=== PATIENT | male | born 1925 | race Caucasian/White ===

== ENCOUNTER 2016-07-28 15:54 | Inpatient (IN) | payer OTHER, MEDICARE ==
[~2016-07-28] VITALS: Ht 172.7 cm; Wt 90.0 kg
[~2016-07-28 15:54] MED LIST: ACET325T96 PO; ASPCH81X PO; ATV5 PO; SERT25TA PO; TRAM-10 PO
[2016-07-28 17:14] LABS: BASO % 0.6 %; BASO ABS # 0.04 K/uL (0-0.2); EOS % 1.9 %; HEMATOCRIT 28.4 % (42-52); IG% 0.3 %; LYMPH % 15.6 %; MEAN CELL VOLUME 87.7 fL (80-100); MEAN CORPUSCULAR HEMOGLOBIN 27.2 pg (25-34); MEAN PLATELET VOLUME 9.7 fL (7.4-10.4); MONO % 12.8 %; NEUT % 68.8 %; PLATELET COUNT 282 K/uL (130-400); RED BLOOD COUNT 3.24 M/uL (4.7-6.1); WHITE BLOOD COUNT 6.39 K/uL (4.8-10.8)
[2016-07-28] MEDS ORDERED: PRT/20 PO (17:34)
[2016-07-28] MEDS ORDERED: ASCO1CAP3 PO (17:34)
[2016-07-28] MEDS ORDERED: FERR1TAB13 PO (17:34)
[2016-07-28 17:35] LABS: COMPLETE YES; POLYCHROMASIA 1+
[2016-07-28 17:36] LABS: ALKALINE PHOSPHATASE 88 U/L (45-117); ALT/SGPT 28 U/L (12-78); AST/SGOT 20 U/L (15-37); BLOOD UREA NITROGEN 16 mg/dl (7-18); BUN/CREATININE RATIO 11.4 (10-20); CALCIUM 8.3 mg/dl (8.5-10.1); CARBON DIOXIDE 24 mmol/L (21-32); CHLORIDE 107 mmol/L (98-107); GLUCOSE 130 mg/dl (70-99); SODIUM 141 mmol/L (136-145)
[2016-07-28] MEDS ORDERED: LORAZEPAM 2 MG/ML 1 ML VIAL IV STA (19:05)
[2016-07-28] MEDS ORDERED: LORAZEPAM 2 MG/ML 1 ML VIAL ONE (19:07)
[2016-07-28] MEDS ORDERED: LORAZEPAM 2 MG/ML 1 ML VIAL IV PRN (19:15)
[2016-07-28] MEDS ORDERED: HALOPERIDOL LACTATE 5 MG/ML 1 ML VIAL IM PRN (20:45)
[2016-07-28] MEDS ORDERED: TRAMADOL HCL 50 MG TAB PO PRN (20:45)
[2016-07-28] MEDS ORDERED: ACETAMINOPHEN 325 MG TAB PO PRN (20:45)
[2016-07-28] MEDS ORDERED: HALOPERIDOL 1 MG TAB PO PRN (20:45)
[2016-07-28] MEDS ORDERED: ONDANSETRON INJ 2 MG/ML 2 ML VIAL IV PRN (20:45)
[2016-07-28] MEDS ORDERED: SERTRALINE HCL 50 MG TAB PO SCH (21:00)
[2016-07-28] MEDS: FERROUS SULFATE 325 MG TAB PO SCH (21:00)
[2016-07-28] MEDS ORDERED: HALOPERIDOL LACTATE 5 MG/ML 1 ML VIAL IM ONE (21:56)
[2016-07-28] MEDS ORDERED: PANTOprazole INJ 80 MG in SYRINGE 0 ML IV STA (21:59)
[2016-07-28] MEDS ORDERED: CALCIUM GLUCONATE 10% 1,000 MG in SODIUM CHLORIDE 0.9% 50ML 50 ML IV STA (22:17)
[2016-07-28 22:25] VITALS: BP 132/79; PULSE 114; TEMP 36.8; O2SAT 97
--- NOTE | 2016-07-28 23:19 | EMERGENCY ROOM VISIT NOTE ---
History Report prepared by Saraibperico: Elena Taylor Under the Supervision of: Dr. Orville Ibarra M.D. First contact with patient: 16:13 Chief Complaint: ABNORMAL LABS Stated Complaint: ILLNESS History of Present Illness The patient is a 89 year old male who presents to the Emergency Room with complaints of abnormal lab results. He was found to anemic on inpatient lab testing, but refused any treatment. The patient has a history of dementia and was agitated and uncooperative at the time of triage. He was brought to the ED via ALS from [facility] with a court order for treatment via the Office of Aging, and signed by Menagerie Caretaker Niranjan. He reports "a lady" came in his room at [facility] earlier today and brought 4 people in to take him out of his bed and bring him here, to the ED, for treatment of the anemia, which greatly upset him. The patient was discharged from the hospital here at [facility] on July 14 after experiencing a GI bleed. He denies any recent vomiting, diarrhea, melena or hematochezia. He reports his appetite has been "good" recently. The patient also denies any LOC, headache, fevers, chills, diaphoresis , visual changes, neck pain, chest pain, breathing difficulties, nausea, abdominal pain, back pain, urinary symptoms, numbness, weakness, lymphadenopathy , rash, or other complaints. Source of History: patient Onset: S[employer]IOR [employer]IST Position: other (global) Timing: constant (global) Review of Systems See HPI for pertinent positives and negatives. A total of ten systems were reviewed and were otherwise negative. Past Medical & Surgical Medical Problems: (1) Anxiety (2) CKD (chronic kidney disease) stage 3, GFR 30-59 ml/min (3) Dementia (4) HTN (hypertension) (5) Hyperlipidemia (6) Symptomatic anemia Surgical Problems: (1) History of appendectomy (2) History of cholecystectomy Social History Smoking Status: Never Smoker Alcohol Use: none Drug Use: none Marital Status: Housing Status: lives alone Occupation Status: retired Current/Historical Medications Scheduled Ascorbic Acid (Vitamin C), 500 MG PO BID Aspirin (Aspirin Chewable), 81 MG PO DAILY Ferrous Sulfate (Kp Ferrous Sulfate), 1 TAB PO BID Pantoprazole (Protonix), 20 MG PO DAILY Sertraline (Zoloft), 12.5 MG PO HS Scheduled PRN Tramadol (Ultram), 50 MG PO Q8H PRN for Pain Allergies Coded Allergies: No Known Allergies (Verified , ., 07/28/16) Physical Exam Vital Signs Date Time Temp Pulse Resp B/P Pulse Ox O2 Delivery O2 Flow Rate FiO2 07/28/16 18:10 78 24 140/75 96 Room Air 07/28/16 16:27 79 07/28/16 16:13 99 Room Air 07/28/16 16:10 36.8 86 18 155/78 99 Room Air Physical Exam GENERAL: Awake, alert, well-appearing, in no acute distress HENT: Normocephalic, atraumatic. Oropharynx unremarkable. EYES: Normal conjunctiva. Sclera non-icteric. NECK: Supple. No nuchal rigidity. FROM. No JVD. RESPIRATORY: Clear to auscultation. CARDIAC: Regular rate, normal rhythm. Extremities warm and well perfused. Pulses equal. ABDOMEN: Soft, non-distended. No tenderness to palpation. No rebound or guarding. No masses. RECTAL: Deferred. MUSCULOSKELETAL: Chest examination reveals no tenderness. The back is symmetrical on inspection without obvious abnormality. There is no CVA tenderness to palpation. No joint edema. LOWER EXTREMITIES: Calves are equal size bilaterally and non-tender. Trace lower extremity edema. No discoloration. NEURO: Normal sensorium. No sensory or motor deficits noted. SKIN: No rash or jaundice noted. Medical Decision & Procedures Laboratory Results 07/28/16 17:01 Red Blood Count 3.24, Mean Corpuscular Volume 87.7, Mean Corpuscular Hemoglobin 27.2, Mean Corpuscular Hemoglobin Concent 31.0, Mean Platelet Volume 9.7, Neutrophils (%) (Auto) 68.8, Lymphocytes (%) (Auto) 15.6, Monocytes (%) (Auto) 12.8, Eosinophils (%) (Auto) 1.9, Basophils (%) (Auto) 0.6, Neutrophils # (Auto ) 4.39, Lymphocytes # (Auto) 1.00, Monocytes # (Auto) 0.82, Eosinophils # (Auto ) 0.12, Basophils # (Auto) 0.04 07/28/16 16:28 Test 07/28/16 16:28 07/28/16 17:01 Anion Gap 10.0 mmol/L (3-11) Est Creatinine Clear Calc Drug Dose 39.4 ml/min Estimated GFR () 51.3 Estimated GFR (Non- 44.2 BUN/Creatinine Ratio 11.4 (10-20) Calcium Level 8.3 mg/dl (8.5-10.1) Total Bilirubin 0.2 mg/dl (0.2-1) Direct Bilirubin mg/dl (0-0.2) Aspartate Amino Transf (AST/SGOT) 20 U/L (15-37) Alanine Aminotransferase (ALT/SGPT) 28 U/L (12-78) Alkaline Phosphatase 88 U/L (45-117) Total Protein 6.6 gm/dl (6.4-8.2) Albumin 3.5 gm/dl (3.4-5.0) Lipase 157 U/L (73-393) Chemistry Specimen Hemolysis White Blood Count 6.39 K/uL (4.8-10.8) Red Blood Count 3.24 M/uL (4.7-6.1) Hemoglobin 8.8 g/dL (14.0-18.0) Hematocrit 28.4 % (42-52) Mean Corpuscular Volume 87.7 fL (80-100) Mean Corpuscular Hemoglobin 27.2 pg (25-34) Mean Corpuscular Hemoglobin Concent 31.0 g/dl (32-36) Platelet Count 282 K/uL (130-400) Mean Platelet Volume 9.7 fL (7.4-10.4) Neutrophils (%) (Auto) 68.8 % Lymphocytes (%) (Auto) 15.6 % Monocytes (%) (Auto) 12.8 % Eosinophils (%) (Auto) 1.9 % Basophils (%) (Auto) 0.6 % Neutrophils # (Auto) 4.39 K/uL (1.4-6.5) Lymphocytes # (Auto) 1.00 K/uL (1.2-3.4) Monocytes # (Auto) 0.82 K/uL (0.11-0.59) Eosinophils # (Auto) 0.12 K/uL (0-0.5) Basophils # (Auto) 0.04 K/uL (0-0.2) RDW Standard Deviation 51.7 fL (36.4-46.3) RDW Coefficient of Variation 16.0 % (11.5-14.5) Immature Granulocyte % (Auto) 0.3 % Immature Granulocyte # (Auto) 0.02 K/uL (0.00-0.02) Polychromasia 1+ Laboratory results reviewed by me Medications Administered Medications (Trade) Dose Ordered Sig/Satinder Route Start Time Stop Time Status Last Admin Dose Admin Lorazepam (Ativan Inj) 0.5 mg NOW STAT IV 07/28/16 19:05 07/28/16 19:07 DC 07/28/16 19:05 0.5 MG Lorazepam (Ativan Inj) 0.5 mg Q5M PRN IV 07/28/16 19:15 07/28/16 20:41 DC 07/28/16 19:12 0.5 MG ED Course 164: The patient was evaluated in room C7. A complete history and physical exam was performed. 1839: I reassessed the patient. He got agitated and tried to get up out of bed and leave the ED. Security was called and I have ordered Ativan for him. 1899: I discussed the patients case with Marivel Tristan PA-C, [facility]. The patient will be further evaluated. 1904: Ativan 0.5 mg IV. 1914: Ativan 0.5 mg IV. Medical Decision Triage Nursing notes reviewed. The patient's presentation and history were concerning for anemia, noncompliance with recommended treatment and history of dementia. Etiologies such as diverticulosis, AVM, coagulopathy, colitis, inflammatory bowel disease, malignancy,Evelyne-Maxwell tear, esophagitis, peptic ulcer disease , variceal bleed, gastritis, epistaxis, fissure, hemorrhoids, as well as others were entertained. Records were reviewed. The patient was in the hospital for a GI bleed. He was Hemoccult positive at that time. He did not consent for colonoscopy. The patient was here on a court mandated order for treatment due to his dementia. The patient was on the phone with his daughter when I entered the room and she was asking him to cooperate with the treatment. The patient agreed reluctantly and blood work was obtained. The patient was significantly anemic with a hemoglobin of 8.8. [facility] who felt further treatment in the hospital was warranted. Prior to evaluation by the hospital service the patient became agitated and wanted to leave. Security had to prevent him from leaving and escort him to his room. The patient was given 0.5 mg of IV Ativan and was much more comfortable and relaxed with this. Patient was evaluated by the hospitalist service and admitted for further evaluation of his anemia and probable GI bleed. The chart was completed utilizing [employer] Speech voice recognition software. Grammatical errors, random word insertions, pronoun errors, and incomplete sentences are an occasional consequence of this system due to software limitations, ambient noise, and hardware issues. Any formal questions or concerns about the content, text, or information contained within the body of this dictation should be directly addressed to the physician for clarification. Consults Time Called: 1854 Consulting Physician: Marivel Tristan PA-C, [facility]ist Returned Call: 0 I discussed the patients case with Marivel Tristan PA-C, [facility]. The patient will be further evaluated. Impression Primary Impression: Anemia Additional Impressions: GI bleed, Dementia Scribe Attestation The scribe's documentation has been prepared under my direction and personally reviewed by me in its entirety. I confirm that the note above accurately reflects all work, treatment, procedures, and medical decision making performed by me. Departure Information Dispostion Being Evaluated By Hospitalist Referrals No Doctor, Assigned (PCP) Patient Instructions A Signature Page, My [facility]
[2016-07-28 23:30] VITALS: BP 132/79; PULSE 107; TEMP 36.8; O2SAT 97; Ht 172.7 cm; Wt 90.0 kg
[2016-07-29] VITALS: O2SAT 97
--- NOTE | 2016-07-29 02:58 | HISTORY & PHYSICAL EXAMINATION ---
DATE OF ADMISSION: 07/28/2016 PRIMARY CARE DOCTOR: Lynne Burch MD The patient is a [facility] resident. History was obtained from patient, records and patient's daughter. Limited history from px secondary to dementia. CHIEF COMPLAINT: Anemia as per records "I don't know why I'm in the hospital," as per px. HISTORY OF PRESENT ILLNESS: Medical history is significant for dementia, CAD sp CABG/stenting, hypertension , hyperlipidemia, anxiety as per records, chronic anemia (baseline hemoglobin of 9-10). Recent confinement about 3 weeks ago for symptomatic anemia. Hg 10. EGD showed Paul erosions. Colonoscopy was not done secondary to miscommunication. As per GI note, colonoscopy when patient is agreeable. Patient and daughter opted to go home. Patient started on Prilosec as outpatient. ASA decreased in dose. Last week, patient's daughter from [place] visited the patient. He looked ashen as per daughter. He looked short of breath on exertion. She requested for a blood work to be drawn.. Outpx hemoglobin was noted to be 8.1. PCP recommended ER eval, patient refused. Patient's daughter had to get a court order to bring the patient to the hospital. At the Emergency Room, the patient agitated and combative. Given Ativan. PX denies chest pain, shortness of breath, abdominal pain, black or bloody stools. He does not know why he is in the hospital. MEDICAL HISTORY: As above. SURGERIES: Cholecystectomy. HOME MEDICATIONS: Include; Tylenol, aspirin, ferrous sulfate, Protonix, Ultram and vitamin C. ALLERGIES: No known drug allergies. FAMILY HISTORY: Cannot be obtained. PERSONAL AND SOCIAL HISTORY: Cannot be obtained. [facility] resident. REVIEW OF SYSTEMS: Cannot be obtained. PHYSICAL EXAMINATION: VITAL SIGNS: Blood pressure was noted to be 123/72, pulse rate 80, RR 20, temperature 36.8 and sats 90 on room air. GENERAL: Noted to be demented, obese, in no respiratory distress. SKIN: pallor. HEENT: Pale palpebral conjunctivae. Dry mucosa. NECK: Short neck. LUNGS: Decreased breath sounds. HEART: Regular rate and rhythm. ABDOMEN: Some distention, nontender. EXTREMITIES: Minimal LE edema, no tenderness. NEUROLOGIC: Demented. LABORATORIES: Hemoglobin was 8.8, hematocrit 28, white cell count 6.3, platelets 282. Sodium 140 potassium 4, chloride 102, CO2 24, BUN 6, creatinine 1.1 and glucose was noted to be 132. ASSESSMENT: 1. acute on chronic anemia symptomatic as per daughter's account hemoglobin drop 2 to slow gastrointestinal bleed history of Paul erosions on recent EGD. Colonoscopy deferred during recent confinement 2 to miscommunication. 2. Hypertension, stable. 3. Coronary artery disease status post coronary artery bypass graft/stenting 4. Dementia. episodic agitation at the ER PLAN: GMF. Follow HH, transfuse hemoglobin if less than 8 and/or for symptomatic anemia. Hold aspirin for now Continue PPI BID GI consult RE GI bleed. (for colonoscopy; would also query GI about need for/ duration of home ASA hold w/ hx Paul erosions on EGD if colonoscopy unremarkable) Haldol prn agitation DVT prophylaxis, SCDs. RE GI bleed Level 3 Code status as per daughter, MAXIM Roblero. (Px was okay with CPR. No intubation) She requests updates from providers thru her mobile number . [facility]
[2016-07-29 06:58] VITALS: BP 137/74; PULSE 80; TEMP 36.6; O2SAT 99
[2016-07-29] MEDS: PANTOprazole SOD 40 MG TAB PO SCH ×2 (08:36→21:45)
[2016-07-29] MEDS: FERROUS SULFATE 325 MG TAB PO SCH ×2 (08:36→21:45)
--- NOTE | 2016-07-29 11:27 | Progress Note ---
Medicine Progress Note Date & Time of Visit: Jul 29, 2016 at 10:38. Subjective 89 yo M with dementia and behavioral disturbance who was brought to the hospital under court order by his daughter and police for evaluation of his anemia. Per notes, the daughter was concerned 4-5 days ago regarding her father 's pale appearance, and he was taken for bloodwork that revealed a drop in H/H from recent hospital discharge earlier this month. At that time he was evaluated for GIB, however, only upper endoscopy was able to be done and revealed Paul lesions likely 2/2 aspirin use per GI attending. Colonoscopy and c-scope prep was refused by the patient and he was discharged with an incomplete workup 2/2 refusal by both patient and daughter to proceed further. At that time he received 2 Units of blood with good response. At discharge his H/H was 10/33 on 07/09 and is now 8.8/23 on admission yesterday (07/28). Today he denies any bleeding at home and is not sure if he is compliant with aspirin at home. He has a h/o CAD s/p stent and was a Plavix non-responder. Full dose ASA was reduced to 81mg daily at prior discharge as Paul's erosions were not that significant on EGD. Objective Last 8 Hrs Date Time Temp Pulse Resp B/P Pulse Ox O2 Delivery O2 Flow Rate FiO2 07/29/16 09:00 Room Air 07/29/16 06:58 36.6 80 20 137/74 99 Room Air Physical Exam: GEN: WNWD, in no acute distress, alert and oriented to self and date, eyes are closed and lying down while talking with me, occasionally opens HEENT: NC/AT, normal sclerae CARDIO: reg rate, S1/2 heard without m/g/r LUNGS: CTA bilaterally, no crackles, rales or wheezes, good diaphragmatic excursion ABD: soft, non-tender, non-distended, no rebound or guarding, BS EXTREMITY: RP and DP palpable 2+ bilat, no LE swelling or edema, extremities are warm and well-perfused NEURO: limited exam 2/2 patient cooperation/potential for agitation-no gross focal deficits. MUSC: limited exam 2/2 patient cooperation/potential for agitation-no gross focal deficits. SKIN: warm and dry Laboratory Results: Last 24 Hours Test 07/28/16 16:28 07/28/16 17:01 Sodium Level 141 mmol/L Potassium Level 4.0 mmol/L Chloride Level 107 mmol/L Carbon Dioxide Level 24 mmol/L Anion Gap 10.0 mmol/L Blood Urea Nitrogen 16 mg/dl Creatinine 1.40 mg/dl Est Creatinine Clear Calc Drug Dose 39.4 ml/min Estimated GFR () 51.3 Estimated GFR (Non- 44.2 BUN/Creatinine Ratio 11.4 Random Glucose 130 mg/dl Calcium Level 8.3 mg/dl Total Bilirubin 0.2 mg/dl Direct Bilirubin mg/dl Aspartate Amino Transf (AST/SGOT) 20 U/L Alanine Aminotransferase (ALT/SGPT) 28 U/L Alkaline Phosphatase 88 U/L Total Protein 6.6 gm/dl Albumin 3.5 gm/dl Lipase 157 U/L Chemistry Specimen Hemolysis White Blood Count 6.39 K/uL Red Blood Count 3.24 M/uL Hemoglobin 8.8 g/dL Hematocrit 28.4 % Mean Corpuscular Volume 87.7 fL Mean Corpuscular Hemoglobin 27.2 pg Mean Corpuscular Hemoglobin Concent 31.0 g/dl Platelet Count 282 K/uL Mean Platelet Volume 9.7 fL Neutrophils (%) (Auto) 68.8 % Lymphocytes (%) (Auto) 15.6 % Monocytes (%) (Auto) 12.8 % Eosinophils (%) (Auto) 1.9 % Basophils (%) (Auto) 0.6 % Neutrophils # (Auto) 4.39 K/uL Lymphocytes # (Auto) 1.00 K/uL Monocytes # (Auto) 0.82 K/uL Eosinophils # (Auto) 0.12 K/uL Basophils # (Auto) 0.04 K/uL RDW Standard Deviation 51.7 fL RDW Coefficient of Variation 16.0 % Immature Granulocyte % (Auto) 0.3 % Immature Granulocyte # (Auto) 0.02 K/uL Polychromasia 1+ Assessment & Plan 1. Anemia-2/2 poss occult GIB -Symptomatic?--lightheadedness and decreased exercise tolerance per daughter. Pt does not appear winded to her and denies chest pain. All ROS are negative per patient today. Per GI team, elective cscope cannot be completed until . Spoke with daughter, who is in the process of obtaining guardianship through the Office of Aging, and she is fine with this plan. Will plan to start prep early Sunday, putting Miralax in juice as attempted before vs mag citrate? apprec GI recs for this. Will trend H/H as patient allows. Currently he is hemodynamically stable so this is not imperative daily. Cont Protonix and iron supplementation and will defer to GI regarding ASA, but will hold for now. 2. h/o CAD-in setting of decreased exercise tolerance will get TTE as there is not one on file. h/o PCI placement, on admission EKG was SR 81, 1AVB and no evidence of ischemia. Troponin was negative. Will also obtain 25OH vit D for this and dementia 3. Dementia with agitation-restrained with Haldol this morning, on 1:1 and requested Psych consult. Metabolic contributers to delirium/dementia have been evaluated recently including vitamin B12/folate, iron, TSH. Certainly anemia may be contributing directly and indirectly causing frustration with less independence as his exercise tolerance is decreased per daughter. Will also check vitamin D. Appreciate consideration of low dose seroquel? to help control agitation or other consistent medication for this instead of PRN which is not reliably given. He did start very low dose Sertraline earlier this month. Will work to reorient/keep good day/night cycles in lieu of chemical restraint unless needed. Avoid Ativan at this time to prevent delirium/ owning/worsening of aggression--this happened last night and ultimately Haldol was required. Nutrition-clear liquid diet for now. DVT proph-SCDs in setting of poss GIB Full code-no mech intubation (LVL 3) Dispo-prep or scope on DO [facility] Hospitalist Consultants: GI/Psych Current Inpatient Medications: Current Inpatient Medications Medications (Trade) Dose Ordered Sig/Satinder Route Start Time Stop Time Status Last Admin Dose Admin Acetaminophen (Tylenol Tab) 650 mg Q4H PRN PO 07/28/16 20:45 08/27/16 20:44 Haloperidol Lactate (Haldol Inj) 2 mg Q2H PRN IM 07/28/16 20:45 07/29/16 08:35 2 MG Haloperidol (Haldol Tab) 2 mg Q4H PRN PO 07/28/16 20:45 08/27/16 20:44 Ondansetron HCl (Zofran Inj) 4 mg Q6H PRN IV 07/28/16 20:45 08/27/16 20:44 Tramadol HCl (Ultram Tab) 25 mg Q6H PRN PO 07/28/16 20:45 08/27/16 20:44 Sertraline HCl (Zoloft Tab) 12.5 mg HS PO 07/28/16 21:00 08/27/16 20:59 Ferrous Sulfate (Feosol Tab) 325 mg BID PO 07/28/16 21:00 08/27/16 20:59 Pantoprazole Sodium (Protonix Tab) 40 mg BID PO 07/29/16 09:00 08/28/16 08:59
--- NOTE | 2016-07-29 12:54 | Gastrointestinal Consultation ---
Gastrointestinal Consultation Date of Consultation: Jul 29, 2016 History of Present Illness Patient is a 89 year old male whom I saw on an earlier admission for similar complaints. Mr. Roblero is an 89 yo gentleman with dementia who has had recurrent dyspnea on exertion with subsequent identification of anemia without signs of bleeding. On last admission within a month, EGD revealed mild but present Paul's erosions in a hernia sac. Discussions with daughter and patient in regards to colonoscopy were undertaken and several attempts (multiple days worth) of attempts at a prep for a colonoscopy were attempted, however, it appears he would not agree to drink the preparation. He apparently was discharged home ( [facility]). Re-admitted with dyspnea, repeat outpatient hemoglobin was mildly declined, admission was recommended, but even with daughter POA had to require hospitilization via court order. He can not provide any history, was very combative this morn requiring haldol. Nursing staff denies any evidence of gi bleeding. No melena, hematemesis, or hematochezia. VSS and patient is resting comfortably. Past Medical/Surgical History Medical Problems: (1) Anemia Status: Acute (2) Dementia Status: Chronic (3) GI bleed Status: Acute Social History Smoking Status: Never Smoker Alcohol Use: none Drug Use: none Marital Status: Housing Status: lives alone Occupation Status: retired Allergies Coded Allergies: No Known Allergies (Verified , ., 07/28/16) Current Medications Home Meds and Scripts Medications Dose Route/Sig Max Daily Dose Days Date Category Vitamin C (Ascorbic Acid) 500 Mg Cap 500 Mg PO BID 07/28/16 Reported Protonix (Pantoprazole Sodium) 20 Mg Tab 20 Mg PO DAILY 07/28/16 Reported Kp Ferrous Sulfate (Ferrous Sulfate) 325 Mg Tab 1 Tab PO BID 30 07/28/16 Reported Zoloft (Sertraline HCl) 25 Mg Tab 12.5 Mg PO HS 30 07/10/16 Rx Ultram (Tramadol HCl) 50 Mg Tab 50 Mg PO Q8H PRN 07/04/16 Reported Aspirin Chewable (Aspirin) 81 Mg Chew 81 Mg PO DAILY 07/04/16 Reported Review of Systems Not reliably able to be obtained given patients chronic dementia. Physical Exam Date Time Temp Pulse Resp B/P Pulse Ox O2 Delivery O2 Flow Rate FiO2 07/29/16 09:00 Room Air 07/29/16 06:58 36.6 80 20 137/74 99 Room Air 07/29/16 00:00 97 Room Air 07/28/16 23:30 36.8 107 19 132/79 97 Room Air 07/28/16 22:25 36.8 114 19 132/79 97 Room Air 07/28/16 20:10 80 20 123/72 93 Room Air 07/28/16 18:10 78 24 140/75 96 Room Air 07/28/16 16:27 79 07/28/16 16:13 99 Room Air 07/28/16 16:10 36.8 86 18 155/78 99 Room Air General Appearance: WD/WN, + pertinent finding (sleeping in bed) RRR No mgr diminshed bs in bases nabs/soft/nd/nd awakes and tells me his name no neurological defecits noticed no apparent distress. Laboratory Results Last 24 Hours Test 07/28/16 16:28 07/28/16 17:01 07/29/16 11:14 Sodium Level 141 mmol/L Potassium Level 4.0 mmol/L Chloride Level 107 mmol/L Carbon Dioxide Level 24 mmol/L Anion Gap 10.0 mmol/L Blood Urea Nitrogen 16 mg/dl Creatinine 1.40 mg/dl Est Creatinine Clear Calc Drug Dose 39.4 ml/min Estimated GFR () 51.3 Estimated GFR (Non- 44.2 BUN/Creatinine Ratio 11.4 Random Glucose 130 mg/dl Calcium Level 8.3 mg/dl Total Bilirubin 0.2 mg/dl Direct Bilirubin mg/dl Aspartate Amino Transf (AST/SGOT) 20 U/L Alanine Aminotransferase (ALT/SGPT) 28 U/L Alkaline Phosphatase 88 U/L Total Protein 6.6 gm/dl Albumin 3.5 gm/dl Lipase 157 U/L Chemistry Specimen Hemolysis White Blood Count 6.39 K/uL Red Blood Count 3.24 M/uL Hemoglobin 8.8 g/dL Hematocrit 28.4 % Mean Corpuscular Volume 87.7 fL Mean Corpuscular Hemoglobin 27.2 pg Mean Corpuscular Hemoglobin Concent 31.0 g/dl Platelet Count 282 K/uL Mean Platelet Volume 9.7 fL Neutrophils (%) (Auto) 68.8 % Lymphocytes (%) (Auto) 15.6 % Monocytes (%) (Auto) 12.8 % Eosinophils (%) (Auto) 1.9 % Basophils (%) (Auto) 0.6 % Neutrophils # (Auto) 4.39 K/uL Lymphocytes # (Auto) 1.00 K/uL Monocytes # (Auto) 0.82 K/uL Eosinophils # (Auto) 0.12 K/uL Basophils # (Auto) 0.04 K/uL RDW Standard Deviation 51.7 fL RDW Coefficient of Variation 16.0 % Immature Granulocyte % (Auto) 0.3 % Immature Granulocyte # (Auto) 0.02 K/uL Polychromasia 1+ Impression Patient is a 89 year old male with complaints of dyspnea and anemia I am unsure if his dyspnea is caused from anemia. Pulmonary issues and CV issues should also be discussed and explored with CXR etc. He at this time does not have any evidence of gi bleeding, overt or occult. He does have Paul's lesions and should remain on PPI to help avoid continued ulcerations. Normally colonoscopy would be pursued, however, a good quality prep would be essential to rule out lesions including AVM's to be explored and to be performed safely. If patient is willing to prep, would pursue with colonoscopy and consideration for repeat EGD to ensure no worsening ulcerations. Please let know patient and family wishes and will place on schedule for this week.
[2016-07-29] MEDS ORDERED: QUETIAPINE FUMARATE 25 MG TAB PO PRN (14:15)
--- NOTE | 2016-07-29 14:27 | Psychiatric Consultation ---
Consultation Identifying Data Mr Roblero is an 89yo male with a history of multiple medical problems to include alzheimer's dementia (per record) and presently admitted by court order for treatment of his anemia. Psychiatry was consulted as patient lacks capacity and continues to request to go home, refusing medical tests, labs and procedures and becoming agitated resulting in Code Pimentel AM 07/29/16 prompting IM haldol after failure of verbal redirection and patient refusal for oral meds. Consultation question is for medication management options for agitation. Chief Complaint "I'm fine, I want to go home". History of Present Illness The patient is laying in his bed this afternoon, with eyes closed. He interacts to verbal prompting but only rarely opens his eyes. He states he is fine and wants to go home. He asks if this provider will let him go home. When he is told he has anemia and needs to remain to work on identifying the cause and to help to improve his blood counts/anemia he again perseverates on " I feel fine, I want to go home." He is oriented to person, but no other of the 9 orientation questions on MMSE. He is able to pick from choices e.g. "I guess this is a hospital" but has no recollection that it is New Year's Amy. With prompting he can deduce that "it must be June" but not that it is the "" He shows no appreciation of his medical condition nor the r/b/se/a of leaving treatment nor staying for treatment. He is verbally irritable with this provider but redirectable. When provider asks about medications and blood draws, and the ultrasound/echo he states he will not do it, "I want to go home." When provider encourages him that if Dr Dial can monitor his bloodwork to help towards identifying a casue and solution so that he can go home he states "I guess I will do it then." Reveiw of his chart shows that he has no formal psychiatric history but is known to our consultation service from a prior admission 07/04/16. He was started on zoloft 12.5mg/hs at that time to assist with agitation/irritability, and provided ativan 0.5mg prior to procedures. He had haldol in the ER prior to that admission but no other antipsychotic medications. It is not clear if he has routinely been taking his sertraline at his fdc or refusing. When asked he denies having GORDON, stomach upset or loose bowels. During this admission he refused his sertraline 12.5mg last night. He has been refusing all his po medications. He had IM haldol as noted above in introduction on AM of 07/29/16 due to agitation, failure of verbal redirection and refusal for Po medications. Past Psychiatric History Current OP Treatment: no current treatment Prior OP Treatment: no prior treatment (1) Dementia Past Medical/Surgical History History of Obesity: Yes History of HTN: Yes History of Diabetes: Yes History of Heart Disease: Yes History of Dyslipidemia: Yes History of Concussion/Seizure: No Problem List: (1) Symptomatic anemia (2) CKD (chronic kidney disease) stage 3, GFR 30-59 ml/min Allergies Allergies: Coded Allergies: No Known Allergies (Verified , ., 07/28/16) Home Medications Scheduled Ascorbic Acid (Vitamin C), 500 MG PO BID Aspirin (Aspirin Chewable), 81 MG PO DAILY Ferrous Sulfate (Kp Ferrous Sulfate), 1 TAB PO BID Pantoprazole (Protonix), 20 MG PO DAILY Sertraline (Zoloft), 12.5 MG PO HS Scheduled PRN Tramadol (Ultram), 50 MG PO Q8H PRN for Pain Family History Patient 07/29/16 denies family history of mental illness or suicide or substance use (he previously denied this 07/04/16 history as well) Alcohol Use Alcohol Use In Past 12 Months: No Personal History Born in: raised in [place] Education: other (bachelors from [employer], Masters in Engineering from [place]) Work History: biomedical engineering technologist, 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 At one time he owned a pet elephant while living in [place]. Review of Systems Patient denies symptoms on 10 system ROS (however given his cognitive impairment it is unclear if he is reliable) Examination Vital Signs Vital Signs Past 12 Hours Date Time Temp Pulse Resp B/P Pulse Ox O2 Delivery O2 Flow Rate FiO2 07/29/16 09:00 Room Air 07/29/16 06:58 36.6 80 20 137/74 99 Room Air Laboratory Results Last 24 Hours Test 07/28/16 16:28 07/28/16 17:01 07/29/16 11:14 Sodium Level 141 mmol/L Potassium Level 4.0 mmol/L Chloride Level 107 mmol/L Carbon Dioxide Level 24 mmol/L Anion Gap 10.0 mmol/L Blood Urea Nitrogen 16 mg/dl Creatinine 1.40 mg/dl Est Creatinine Clear Calc Drug Dose 39.4 ml/min Estimated GFR () 51.3 Estimated GFR (Non- 44.2 BUN/Creatinine Ratio 11.4 Random Glucose 130 mg/dl Calcium Level 8.3 mg/dl Total Bilirubin 0.2 mg/dl Direct Bilirubin mg/dl Aspartate Amino Transf (AST/SGOT) 20 U/L Alanine Aminotransferase (ALT/SGPT) 28 U/L Alkaline Phosphatase 88 U/L Total Protein 6.6 gm/dl Albumin 3.5 gm/dl Lipase 157 U/L Chemistry Specimen Hemolysis White Blood Count 6.39 K/uL Red Blood Count 3.24 M/uL Hemoglobin 8.8 g/dL Hematocrit 28.4 % Mean Corpuscular Volume 87.7 fL Mean Corpuscular Hemoglobin 27.2 pg Mean Corpuscular Hemoglobin Concent 31.0 g/dl Platelet Count 282 K/uL Mean Platelet Volume 9.7 fL Neutrophils (%) (Auto) 68.8 % Lymphocytes (%) (Auto) 15.6 % Monocytes (%) (Auto) 12.8 % Eosinophils (%) (Auto) 1.9 % Basophils (%) (Auto) 0.6 % Neutrophils # (Auto) 4.39 K/uL Lymphocytes # (Auto) 1.00 K/uL Monocytes # (Auto) 0.82 K/uL Eosinophils # (Auto) 0.12 K/uL Basophils # (Auto) 0.04 K/uL RDW Standard Deviation 51.7 fL RDW Coefficient of Variation 16.0 % Immature Granulocyte % (Auto) 0.3 % Immature Granulocyte # (Auto) 0.02 K/uL Polychromasia 1+ Mental Examination During interview pt is: other (intermittantly cooperative) Appearance: other (laying in bed in dress button down shirt and pants, dress shoes at ) Eye contact is: fair Motor behavior is: no abnormal motor movements (but was agitated earlier today attempting to leave the hospital) Speech: normal in rate, rhythm & volume Affect: blunted (mildly irritable perseverating on going home, but can be redirected) Mood is: irritable Thought process: tangential (paucity of spontaneous thought, but can share some brief vague stories of his past) Thought content: preoccupation (with going home) Suicidal thought are: denied Homicidal thoughts are: denied Hallucinations: denies auditory Cognition: other (severely impaired, poor recall for current and past, only oriented to person, limited abstraction ability) Intelligence estimated to be: average Insight: poor Judgement: poor Impression / Recommendations Impression Diagnosis Dementia (alzheimer's type by record) symptomatic anemia CAD HLP CKD HTN Upper GI erosions Inventory Assets Strengths: inpatient medical care (court ordered) Actively involved POA and daughter Needs: full care support consistent redirection Risk Factors Assessment Male: Yes : Yes /single/: Yes Health problems: Yes Protective Factors Assessment Supportive family: Yes Recommendations (1) Dementia 1. Agree with avoidance of ativan if at all possible 2. Continue sertraline will increase to 25mg at this time (to target agitation/ irritability) crush and mix in food. Per dtr he likes OJ, coffee and grapefruit. 3. Agree with bedside attendant to reduce fall risk and assist with stimulation and orientation 4. Please engage the behavioral efforts for delirium/dementia ([facility] liaison nurse to provide hand out to the primary team) e.g. lights on in day, lights off at night, OOB to chair in day, glasses on, orient at each interaction, etc. 5. Patient's dtr and POA is coming to [place] and may be useful in providing some re-orientation and facilitate father's compliance, will have to observe and see. In meantime, patient would benefit from approach through conversation and then asking for procedure pointing out how engaging in the work up or test will help him towards his goal of hospital discharge. 6. For acute agitation trial 25mg seroquel (quetiapine) q8h prn agitation, hold for sedation, may crush in food If he refuses po, then may give IM haldol 2mg hold for sedation q2h as written by primary team, however if 2 successive doses are unsuccessful, please call behavioral health nurse liaison. Watch for Extrapyramidal symptoms or dystonia with repeated IM dosing. Will not schedule daily antipsychotic at this time, but if he continues to get agitated and requiring prn dosing of medications then would consider daily hs dosing of seroquel for a short period during this hospital stay. thank you for this consultation, we will be following. Call for more acute questions or concerns. Code [id number]
[2016-07-29 14:45] LABS: BASO % 0.8 %; BASO ABS # 0.04 K/uL (0-0.2); EOS % 1.6 %; HEMATOCRIT 28.4 % (42-52); IG% 0.4 %; LYMPH ABS # 0.88 K/uL (1.2-3.4); MEAN CELL VOLUME 86.9 fL (80-100); MEAN CORPUSCULAR HEMOGLOBIN 26.6 pg (25-34); MEAN CORPUSCULAR HGB CONC 30.6 g/dl (32-36); MONO % 15.6 %; NEUT % 63.6 %; PLATELET COUNT 251 K/uL (130-400); RED BLOOD COUNT 3.27 M/uL (4.7-6.1); WHITE BLOOD COUNT 4.88 K/uL (4.8-10.8)
[2016-07-29 15:08] LABS: BUN/CREATININE RATIO 11.6 (10-20); CALCIUM 8.4 mg/dl (8.5-10.1); CREATININE 1.1 mg/dl (0.60-1.40); POTASSIUM 3.6 mmol/L (3.5-5.1)
[2016-07-29 15:34] LABS: COMPLETE YES; HYPOCHROMIA PRESENT; POLYCHROMASIA 1+; SPHEROCYTE OCCASIONAL
[2016-07-29 15:47] VITALS: BP 133/71; PULSE 72; TEMP 36.4; O2SAT 97
[2016-07-29 16:00] VITALS: O2SAT 97
[2016-07-29] MEDS ORDERED: ERGOCALCIFEROL 50,000 INTER.UNIT CAP PO SCH (21:00)
[2016-07-29] MEDS: SERTRALINE HCL 50 MG TAB PO SCH (21:45)
[2016-07-30 00:42] VITALS: BP 103/69; PULSE 82; TEMP 36.6; O2SAT 94
[2016-07-30 06:44] VITALS: BP 111/67; PULSE 76; TEMP 37.1; O2SAT 94
[2016-07-30] MEDS: PANTOprazole SOD 40 MG TAB PO SCH ×2 (08:56→20:50)
[2016-07-30] MEDS: FERROUS SULFATE 325 MG TAB PO SCH ×2 (08:56→20:50)
[2016-07-30 13:30] LABS: BASO % 0.9 %; BASO ABS # 0.04 K/uL (0-0.2); COMPLETE YES; EOS % 0.9 %; HEMATOCRIT 29.7 % (42-52); IG% 0.7 %; LYMPH % 20.4 %; LYMPH ABS # 0.94 K/uL (1.2-3.4); MEAN CELL VOLUME 86.3 fL (80-100); MEAN CORPUSCULAR HEMOGLOBIN 26.7 pg (25-34); MEAN PLATELET VOLUME 9.5 fL (7.4-10.4); NEUT % 67.1 %; PLATELET COUNT 251 K/uL (130-400); RED BLOOD COUNT 3.44 M/uL (4.7-6.1); WHITE BLOOD COUNT 4.61 K/uL (4.8-10.8)
[2016-07-30 14:12] LABS: MANUAL MICROSCOPIC REQUIRED? NO; REVIEW REQ? NO; URINE APPEARANCE CLEAR (CLEAR); URINE BILIRUBIN NEG (NEG); URINE COLOR YELLOW; URINE NITRITE NEG (NEG); URINE SPECIFIC GRAVITY 1.019 (1.000-1.030); UROBILINOGEN NEG (NEG); ZZUR CULT IF INDIC CLEAN CATCH NO
--- NOTE | 2016-07-30 14:40 | Progress Note ---
Progress Note Saw earlier today, sitting in bed just finished meal. No signs of bleeding Hb is stable (actually higher) and same as last admission If family desires colonoscopy, will perform for anemia-5 days of attempted prep was not successful on last admission. If family and primary team desires colonoscopy prior to d/c please order prep with NPO after MN prior or will arrange as outpatient if family desires. Otherwise would recommend continued observation Would suggest ambulation and PT prior to DC ensure admitting c/o dyspnea is not still present
[2016-07-30 15:46] VITALS: BP 145/79; PULSE 75; TEMP 36.5; O2SAT 93
[2016-07-30 16:15] VITALS: O2SAT 93
[2016-07-30] MEDS: SERTRALINE HCL 50 MG TAB PO SCH (20:50)
--- NOTE | 2016-07-30 22:38 | Progress Note ---
Medicine Progress Note Date & Time of Visit: Jul 30, 2016 at 17:27. Objective Last 8 Hrs Date Time Temp Pulse Resp B/P Pulse Ox O2 Delivery O2 Flow Rate FiO2 07/30/16 15:46 36.5 75 16 145/79 93 Room Air Physical Exam: GEN: WNWD, in no acute distress, alert and oriented to self and date, eyes are closed and lying down while talking with me, occasionally opens HEENT: NC/AT, normal sclerae CARDIO: reg rate, S1/2 heard without m/g/r LUNGS: CTA bilaterally, no crackles, rales or wheezes, good diaphragmatic excursion ABD: soft, non-tender, non-distended, no rebound or guarding, BS EXTREMITY: RP and DP palpable 2+ bilat, no LE swelling or edema, extremities are warm and well-perfused NEURO: limited exam 2/2 patient cooperation/potential for agitation-no gross focal deficits. MUSC: limited exam 2/2 patient cooperation/potential for agitation-no gross focal deficits. SKIN: warm and dry Laboratory Results: Last 24 Hours Test 07/30/16 13:05 07/30/16 13:45 White Blood Count 4.61 K/uL Red Blood Count 3.44 M/uL Hemoglobin 9.2 g/dL Hematocrit 29.7 % Mean Corpuscular Volume 86.3 fL Mean Corpuscular Hemoglobin 26.7 pg Mean Corpuscular Hemoglobin Concent 31.0 g/dl Platelet Count 251 K/uL Mean Platelet Volume 9.5 fL Neutrophils (%) (Auto) 67.1 % Lymphocytes (%) (Auto) 20.4 % Monocytes (%) (Auto) 10.0 % Eosinophils (%) (Auto) 0.9 % Basophils (%) (Auto) 0.9 % Neutrophils # (Auto) 3.10 K/uL Lymphocytes # (Auto) 0.94 K/uL Monocytes # (Auto) 0.46 K/uL Eosinophils # (Auto) 0.04 K/uL Basophils # (Auto) 0.04 K/uL RDW Standard Deviation 50.4 fL RDW Coefficient of Variation 16.7 % Immature Granulocyte % (Auto) 0.7 % Immature Granulocyte # (Auto) 0.03 K/uL Urine Color YELLOW Urine Appearance CLEAR Urine pH 7.0 Urine Specific [place] 1.019 Urine Protein NEG Urine Glucose (UA) NEG Urine Ketones NEG Urine Occult Blood NEG Urine Nitrite NEG Urine Bilirubin NEG Urine Urobilinogen NEG Urine Leukocyte Esterase NEG Date/Time Source Procedure Growth Status 07/30/16 09:50 Nasal MRSA DNA Surveillance Screen - Final Specimen Negative for MRSA by DNA Probe Complete Assessment & Plan 1. Anemia-improved. Per GI team may prep for colonoscopy tomorrow or . The patient declines the prep to me tonight and vehemently doesn't want to undergo the scope. Will touch base with daughter in the morning to help coordinate efforts. GI is willing to scope but they need a good prep which <r. Annika is declining at this time. Cont Protonix and iron supplementation and will defer to GI regarding ASA, but will hold for now. 2. h/o CAD-in setting of decreased exercise tolerance will get TTE as there is not one on file. h/o PCI placement, on admission EKG was SR 81, 1AVB and no evidence of ischemia. Troponin was negative. 3. Vitamin D deficiency-started replacement, may help with memory and fatigue 4. Dementia with agitation-patient has been calm, daughter requested continuous sitter. Appreciate Psychiatrist recs for agitation control. Cont Seroquel PRN and Sertraline Nutrition-clear liquid diet for now. DVT proph-SCDs in setting of poss GIB Full code-no mech intubation (LVL 3) Dispo-prep for scope on if patient doesn't cont to decline. Will speak with daughter in am. Roxana Dial DO [facility] Hospitalist Consultants: GI/Psych Current Inpatient Medications: Current Inpatient Medications Medications (Trade) Dose Ordered Sig/Satinder Route Start Time Stop Time Status Last Admin Dose Admin Acetaminophen (Tylenol Tab) 650 mg Q4H PRN PO 07/28/16 20:45 08/27/16 20:44 Haloperidol Lactate (Haldol Inj) 2 mg Q2H PRN IM 07/28/16 20:45 07/29/16 08:35 2 MG Ondansetron HCl (Zofran Inj) 4 mg Q6H PRN IV 07/28/16 20:45 08/27/16 20:44 Tramadol HCl (Ultram Tab) 25 mg Q6H PRN PO 07/28/16 20:45 08/27/16 20:44 Ferrous Sulfate (Feosol Tab) 325 mg BID PO 07/28/16 21:00 08/27/16 20:59 07/29/16 21:45 325 MG Pantoprazole Sodium (Protonix Tab) 40 mg BID PO 07/29/16 09:00 08/28/16 08:59 07/29/16 21:45 40 MG Sertraline HCl (Zoloft Tab) 25 mg HS PO 07/29/16 21:00 08/28/16 20:59 07/29/16 21:45 25 MG Quetiapine Fumarate (seroQUEL TAB) 25 mg Q8H PRN PO 07/29/16 14:15 08/28/16 14:14 Ergocalciferol (Vitamin D Cap) 50,000 interunit Q4D PO 07/29/16 21:00 08/28/16 20:59 07/29/16 21:46 50,000 INTERUNIT
[2016-07-30 22:44] VITALS: BP 123/74; PULSE 86; TEMP 37.1; O2SAT 96
[2016-07-31 06:37] LABS: BASO % 0.7 %; BASO ABS # 0.04 K/uL (0-0.2); COMPLETE YES; EOS % 1.1 %; HEMATOCRIT 31.3 % (42-52); IG% 0.4 %; LYMPH % 20.8 %; LYMPH ABS # 1.15 K/uL (1.2-3.4); MEAN CELL VOLUME 86.2 fL (80-100); MEAN CORPUSCULAR HEMOGLOBIN 26.4 pg (25-34); MEAN CORPUSCULAR HGB CONC 30.7 g/dl (32-36); MEAN PLATELET VOLUME 9.4 fL (7.4-10.4); MONO % 13.4 %; NEUT % 63.6 %; PLATELET COUNT 238 K/uL (130-400); RED BLOOD COUNT 3.63 M/uL (4.7-6.1); WHITE BLOOD COUNT 5.53 K/uL (4.8-10.8)
[2016-07-31] MEDS: FERROUS SULFATE 325 MG TAB PO SCH ×2 (08:03→20:10)
[2016-07-31] MEDS: PANTOprazole SOD 40 MG TAB PO SCH ×2 (08:03→20:09)
--- NOTE | 2016-07-31 08:30 | Clinical Documentation Query ---
ABUNDIO Euceda : CLINICAL DOCUMENTATION QUERY Patient is an 89 year old male admitted with anemia secondary to possibly occult GIB. Recent admission 07/04-07/10 for symptomatic anemia in the setting of chronic aspirin use and multiple Paul ulcers. Patient was transfused 2 units of PRBC's at this time. H/H was 10.3 g/dl and 33.6% at time of discharge. Presenting H/H was 8.8 g/dl and 28.4%. Seen in consultation by GI and monitored with serial hematology. Possible colonoscopy pending and is on BID PPI. In your clinical opinion is this patient being managed for: (x ) Acute blood loss anemia ( ) Other explanation of clinical findings (Please Explain) ( ) Unable to determine (Please Define) ( ) Need to Discuss ( ) Not Agree The medical record reflects the following clinical findings, treatment, and risk factors. Clinical Indicators: As above Treatment:Seen in consultation by GI and monitored with serial hematology. Possible colonoscopy pending and is on BID PPI. Risk Factors: Age, Paul ulcers, ASA use, recent GI bleed. Please clarify and document your clinical opinion in the progress notes and discharge summary. Terms such as "probable", "suspected", "likely", "questionable", "possible", or "still to be ruled out" are acceptable. IF IN AGREEMENT, YOU MUST DOCUMENT ABOVE DIAGNOSTIC STATEMENT IN DAILY PROGRESS NOTES AND DISCHARGE SUMMARY. This document is not part of the patient's record. Thank You, Ellis Edwards, RN [phone]
[2016-07-31 08:51] VITALS: BP 131/81; PULSE 75; TEMP 36.4; O2SAT 98
--- NOTE | 2016-07-31 11:03 | DIAGNOSTIC IMAGING REPORT ---
CHEST ONE VIEW PORTABLE CLINICAL HISTORY: Diminished exercise tolerance COMPARISON STUDY: 07/04/2016 FINDINGS: There are postsurgical changes of a midline sternotomy. The heart is borderline enlarged. There is a retrocardiac opacity consistent with a hiatal hernia. There is no lobar consolidation. There are no pleural effusions. There is minor left basilar atelectasis. There is no evidence of failure.[ IMPRESSION: Hiatal hernia. No active disease in the chest. Electronically signed by: Abdifatah Berg M.D. 07/31/2016 11:01 AM
[2016-07-31] MEDS ORDERED: PERFLUTREN LIPID MICROSPHERE (DEFINITY) IV ONE (11:54)
--- NOTE | 2016-07-31 15:30 | ECHOCARDIOGRAM REPORT ---
*NOTICE TO RECEIVING DEMOCRAT AGENCY This information is strictly Confidential and protected under [place] law. [place] law prohibits you from making any further disclosure of this information unless further disclosure is expressly permitted by the written consent of the person to whom it pertains or is authorized by law. A general authorization for the release of medical or other information is not sufficient for this purpose. Hospital accepts no responsibility if the information is made available to any other person, INCLUDING THE PATIENT. Interpretation Summary * Name: ELIZABETH MORGAN Study Date: 07/31/2016 12:22 PM BP: 131/74 mmHg * Patient Location: .[id number]\1 HR: 79 * : 1925 (M/d/yyyy) Gender: Male Height: 68 in * Age: 89 yrs Ethnicity: CA Weight: 198 lb * Ordering Physician: Roxana Dial * Referring Physician: Self, Referred * Performed By: Merary Madrigal RDCS * * Reason For Study: DECREASED EXERCISE TOLERANCE WITH H/O CAD * BSA: 2.0 m2 * History: DECREASED EXERCISE TOLERANCE, H/O CAD * -- Conclusions -- * Technically limited due to patient's noncompliance with directions. * Grossly normal LV chamber size. * Grossly normal LV systolic function, not all romo visualized, EF 55-60%. * Aortic valve sclerosis moderate, without significant aortic valvular stenosis. Procedure Details * The study was technically limited. * 3ml Definity given but did not appear in the ventricle... IV didn't work and patient refused another one. Left Ventricle * The left ventricle is grossly normal size. * There is mild concentric left ventricular hypertrophy. * Left ventricular systolic function is normal. * Ejection Fraction = 55-60%. Mitral Valve * There is mild mitral annular calcification. * There is no mitral valve stenosis. * There is no mitral regurgitation noted. Aortic Valve * Aortic valve sclerosis moderate, without significant aortic valvular stenosis. * No hemodynamically significant valvular aortic stenosis. * There is no significant aortic regurgitation. MMode 2D Measurements and Calculations IVSd 1.2 cm IVSs 1.3 cm LVIDd 4.6 cm LVIDs 3.4 cm LVPWd 1.1 cm LVPWs 1.5 cm IVS/LVPW 1.1 FS 26.9 % EDV(Teich) 99.7 ml ESV(Teich) 47.3 ml EF(Teich) 52.6 % EDV(cubed) 100.4 ml ESV(cubed) 39.1 ml EF(cubed) 61.0 % % IVS thick 7.2 % % LVPW thick 43.2 % LV mass(C)d 192.1 grams LV mass(C)dI 94.4 grams/m\S\2 LV mass(C)s 167.6 grams LV mass(C)sI 82.4 grams/m\S\2 SV(Teich) 52.4 ml SI(Teich) 25.8 ml/m\S\2 SV(cubed) 61.2 ml SI(cubed) 30.1 ml/m\S\2 Ao root diam 3.4 cm Ao root area 9.1 cm\S\2 Doppler Measurements and Calculations MV E max kenneth 68.9 cm/sec MV A max kenneth 121.2 cm/sec MV E/A 0.57 MV dec time 0.30 sec Ao V2 max 115.5 cm/sec Ao max PG 5.3 mmHg Ao max PG (full) 0.84 mmHg LV V1 max PG 4.5 mmHg LV V1 max 106.0 cm/sec TR max kenneth 184.8 cm/sec
[2016-07-31 15:46] VITALS: BP 130/77; PULSE 71; TEMP 36.5; O2SAT 98
[2016-07-31 16:02] VITALS: O2SAT 98
[2016-07-31] MEDS: POLYETHYLENE (MIRALAX) 17 GM PACK PO SCH (17:28)
[2016-07-31] MEDS: SERTRALINE HCL 50 MG TAB PO SCH (20:10)
--- NOTE | 2016-07-31 21:58 | Progress Note ---
Medicine Progress Note Date & Time of Visit: Jul 31, 2016 at 21:45. Subjective He is very smily and chatty, he became tearful when talking about [place] and his adventures there and all around the world. We talked about his time in the briefly. He states "there is nothing wrong with me and I want to go home." He is amenable to drinking the prep for now with daughter's encouragement. Objective Last 8 Hrs Date Time Temp Pulse Resp B/P Pulse Ox O2 Delivery O2 Flow Rate FiO2 07/31/16 15:46 36.5 71 20 130/77 98 Room Air Physical Exam: GEN: WNWD, in no acute distress, alert and appropriate but may tend to repeat himself HEENT: NC/AT, normal sclerae CARDIO: reg rate, S1/2 heard without m/g/r LUNGS: CTA bilaterally, no crackles, rales or wheezes, good diaphragmatic excursion ABD: soft, non-tender, non-distended, no rebound or guarding, BS EXTREMITY: RP and DP palpable 2+ bilat, no LE swelling or edema, extremities are warm and well-perfused NEURO: limited exam 2/2 patient cooperation/potential for agitation-no gross focal deficits. MUSC: limited exam 2/2 patient cooperation/potential for agitation-no gross focal deficits. SKIN: warm and dry Laboratory Results: Last 24 Hours Test 07/31/16 06:18 White Blood Count 5.53 K/uL Red Blood Count 3.63 M/uL Hemoglobin 9.6 g/dL Hematocrit 31.3 % Mean Corpuscular Volume 86.2 fL Mean Corpuscular Hemoglobin 26.4 pg Mean Corpuscular Hemoglobin Concent 30.7 g/dl Platelet Count 238 K/uL Mean Platelet Volume 9.4 fL Neutrophils (%) (Auto) 63.6 % Lymphocytes (%) (Auto) 20.8 % Monocytes (%) (Auto) 13.4 % Eosinophils (%) (Auto) 1.1 % Basophils (%) (Auto) 0.7 % Neutrophils # (Auto) 3.52 K/uL Lymphocytes # (Auto) 1.15 K/uL Monocytes # (Auto) 0.74 K/uL Eosinophils # (Auto) 0.06 K/uL Basophils # (Auto) 0.04 K/uL RDW Standard Deviation 50.8 fL RDW Coefficient of Variation 16.6 % Immature Granulocyte % (Auto) 0.4 % Immature Granulocyte # (Auto) 0.02 K/uL Assessment & Plan 89 yoM with h/o symptomatic anemia s/p 2 Units blood in early june, returned under court order by daughter/now guardian, to complete the workup including colonoscopy. 1. Anemia-H/H again improved. No bleeding since admission. Prep for elective colonoscopy tomorrow. Pt is complying with prep so far. Daughter and I spoke at length this evening about the ethics involved in forcing him to get this scope. She understands that if he aggressively declines the procedure we may need to hold off on doing it. From a psych standpoint, forcing him to do anything would take his independence which he is clinging to during the process of losing his memory. GI is willing to scope but they need a good prep. Will see what the team thinks in the morning. NPO p MN. Cont Protonix and iron supplementation and will defer to GI regarding ASA, but will hold for now. 2. h/o CAD-in setting of decreased exercise tolerance-TTE was limited 2/2 patient noncompliance with the study, however, there were no gross abnormalities with normal LV function and an EF 55-60%. h/o PCI placement, on admission EKG was SR 81, 1AVB and no evidence of ischemia. Troponin was negative. 3. Vitamin D deficiency-started replacement, may help with memory and fatigue. Would continue for 12 weeks total, then repeat because of low value. 4. Dementia with agitation-patient has been calm, daughter requested continuous sitter out of concern that he will fall. He lives alone, however.? PT/OT to evaluate safety to return home. Appreciate Psychiatrist recs for agitation control. Cont Seroquel PRN and Sertraline daily. Nutrition-clear liquid diet for now.-NPO p MN DVT proph-SCDs in setting of poss GIB Full code-no mech intubation (LVL 3) Dispo-cont Med/Surg DO [facility] Hospitalist Consultants: GI/Psych Current Inpatient Medications: Current Inpatient Medications Medications (Trade) Dose Ordered Sig/Satinder Route Start Time Stop Time Status Last Admin Dose Admin Acetaminophen (Tylenol Tab) 650 mg Q4H PRN PO 07/28/16 20:45 08/27/16 20:44 Haloperidol Lactate (Haldol Inj) 2 mg Q2H PRN IM 07/28/16 20:45 07/29/16 08:35 2 MG Ondansetron HCl (Zofran Inj) 4 mg Q6H PRN IV 07/28/16 20:45 08/27/16 20:44 Tramadol HCl (Ultram Tab) 25 mg Q6H PRN PO 07/28/16 20:45 08/27/16 20:44 Ferrous Sulfate (Feosol Tab) 325 mg BID PO 07/28/16 21:00 08/27/16 20:59 07/31/16 20:10 325 MG Pantoprazole Sodium (Protonix Tab) 40 mg BID PO 07/29/16 09:00 08/28/16 08:59 07/31/16 20:09 40 MG Sertraline HCl (Zoloft Tab) 25 mg HS PO 07/29/16 21:00 08/28/16 20:59 07/31/16 20:10 25 MG Quetiapine Fumarate (seroQUEL TAB) 25 mg Q8H PRN PO 07/29/16 14:15 08/28/16 14:14 Ergocalciferol (Vitamin D Cap) 50,000 interunit Q4D PO 07/29/16 21:00 08/28/16 20:59 07/29/16 21:46 50,000 INTERUNIT Polyethylene (Miralax Powder Packet) 68 gm TODAY@, PO 07/31/16 17:00 08/01/16 05:01 07/31/16 17:28 68 GM
[2016-07-31 23:03] VITALS: BP 126/75; PULSE 74; TEMP 36.7; O2SAT 97
[2016-08-01] MEDS: POLYETHYLENE (MIRALAX) 17 GM PACK PO SCH (04:53)
[2016-08-01 07:25] VITALS: BP 133/77; PULSE 68; TEMP 36.7; O2SAT 96
[2016-08-01] MEDS: PANTOprazole SOD 40 MG TAB PO SCH (07:28)
[2016-08-01] MEDS: FERROUS SULFATE 325 MG TAB PO SCH (07:28)
--- NOTE | 2016-08-01 08:06 | Clinical Documentation Query ---
GIA Sinclair : CLINICAL DOCUMENTATION QUERY Patient is an 89 year old male admitted with anemia secondary to possibly occult GIB. Recent admission 07/04-07/10 for symptomatic anemia in the setting of chronic aspirin use and multiple Paul ulcers. Patient was transfused 2 units of PRBC's at this time. H/H was 10.3 g/dl and 33.6% at time of discharge. Presenting H/H was 8.8 g/dl and 28.4%. Seen in consultation by GI and monitored with serial hematology. Possible colonoscopy pending and is on BID PPI. In your clinical opinion is this patient being managed for: ( ) Acute blood loss anemia ( ) Other explanation of clinical findings (Please Explain) ( ) Unable to determine (Please Define) ( ) Need to Discuss ( ) Not Agree The medical record reflects the following clinical findings, treatment, and risk factors. Clinical Indicators: As above Treatment:Seen in consultation by GI and monitored with serial hematology. Possible colonoscopy pending and is on BID PPI. Risk Factors: Age, Paul ulcers, ASA use, recent GI bleed. Please clarify and document your clinical opinion in the progress notes and discharge summary. Terms such as "probable", "suspected", "likely", "questionable", "possible", or "still to be ruled out" are acceptable. IF IN AGREEMENT, YOU MUST DOCUMENT ABOVE DIAGNOSTIC STATEMENT IN DAILY PROGRESS NOTES AND DISCHARGE SUMMARY. This document is not part of the patient's record. Thank You, Ellis Edwards, RN [phone]
[2016-08-01 08:32] LABS: BASO % 0.3 %; BASO ABS # 0.02 K/uL (0-0.2); COMPLETE YES; EOS % 0.5 %; IG% 0.2 %; LYMPH % 17.6 %; LYMPH ABS # 1.07 K/uL (1.2-3.4); MEAN CELL VOLUME 85.9 fL (80-100); MEAN CORPUSCULAR HEMOGLOBIN 26.9 pg (25-34); MEAN CORPUSCULAR HGB CONC 31.3 g/dl (32-36); MEAN PLATELET VOLUME 9.5 fL (7.4-10.4); MONO % 11.5 %; NEUT % 69.9 %; PLATELET COUNT 233 K/uL (130-400); RED BLOOD COUNT 3.61 M/uL (4.7-6.1); WHITE BLOOD COUNT 6.07 K/uL (4.8-10.8)
--- NOTE | 2016-08-01 09:25 | Gastroenterology Progress Note ---
Progress Note Date of Service: Aug 01, 2016 Subjective Pt evaluation today including: conversation w/ patient, conversation w/ family , physical exam, chart review Patient is a 89 year old male whom I saw on an earlier admission for similar complaints. Mr. Roblero is an 89 yo gentleman with dementia who has had recurrent dyspnea on exertion with subsequent identification of anemia without signs of bleeding. On last admission within a month, EGD revealed mild but present Paul's erosions in a hernia sac. Discussions with daughter and patient occurred in regards to completing a colonoscopy for evaluation. Numerous attempts at prep for a colonoscopy were attempted, however the patient was unable/unwilling to complete the prep. This current admission is court ordered - as patient did not agree with admission. His daughter is POA and would like to proceed with a colonoscopy. He can not provide any history, and denies all ROS stating he feels fine. No melena, hematemesis, or hematochezia per daughter or nursing staff. VSS and patient is resting comfortably in bed. His H&H is 9.7/31 and has continually risen since admission without any intervention. Review of Systems Constitutional: No chills, No fever Respiratory: No shortness of breath Cardiac: No chest pain Abdomen: No diarrhea, No nausea, No pain, No vomiting Medications Current Inpatient Medications Medications (Trade) Dose Ordered Sig/Satinder Route Start Time Stop Time Status Last Admin Dose Admin Acetaminophen (Tylenol Tab) 650 mg Q4H PRN PO 07/28/16 20:45 08/27/16 20:44 Haloperidol Lactate (Haldol Inj) 2 mg Q2H PRN IM 07/28/16 20:45 07/29/16 08:35 2 MG Ondansetron HCl (Zofran Inj) 4 mg Q6H PRN IV 07/28/16 20:45 08/27/16 20:44 Tramadol HCl (Ultram Tab) 25 mg Q6H PRN PO 07/28/16 20:45 08/27/16 20:44 Ferrous Sulfate (Feosol Tab) 325 mg BID PO 07/28/16 21:00 08/27/16 20:59 07/31/16 20:10 325 MG Pantoprazole Sodium (Protonix Tab) 40 mg BID PO 07/29/16 09:00 08/28/16 08:59 07/31/16 20:09 40 MG Sertraline HCl (Zoloft Tab) 25 mg HS PO 07/29/16 21:00 08/28/16 20:59 07/31/16 20:10 25 MG Quetiapine Fumarate (seroQUEL TAB) 25 mg Q8H PRN PO 07/29/16 14:15 08/28/16 14:14 Ergocalciferol (Vitamin D Cap) 50,000 interunit Q4D PO 07/29/16 21:00 08/28/16 20:59 07/29/16 21:46 50,000 INTERUNIT Objective Vital Signs Date Time Temp Pulse Resp B/P Pulse Ox O2 Delivery O2 Flow Rate FiO2 08/01/16 08:17 Room Air 08/01/16 07:25 36.7 68 20 133/77 96 Room Air 07/31/16 23:03 36.7 74 17 126/75 97 Room Air 07/31/16 16:02 98 Room Air 07/31/16 15:46 36.5 71 20 130/77 98 Room Air Physical Exam General Appearance: no apparent distress Eyes: normal inspection ENT: hearing grossly normal Neck: supple, trachea midline Respiratory/Chest: chest non-tender, lungs clear, normal breath sounds, no respiratory distress, no accessory muscle use Cardiovascular: regular rate, rhythm, no edema, no gallop, no JVD, no murmur Abdomen: normal bowel sounds, non tender, soft, no organomegaly, no pulsatile mass Neurologic/Psych: alert, normal mood/affect Skin: normal color Laboratory Results Last 24 Hours Test 08/01/16 08:23 White Blood Count 6.07 K/uL Red Blood Count 3.61 M/uL Hemoglobin 9.7 g/dL Hematocrit 31.0 % Mean Corpuscular Volume 85.9 fL Mean Corpuscular Hemoglobin 26.9 pg Mean Corpuscular Hemoglobin Concent 31.3 g/dl Platelet Count 233 K/uL Mean Platelet Volume 9.5 fL Neutrophils (%) (Auto) 69.9 % Lymphocytes (%) (Auto) 17.6 % Monocytes (%) (Auto) 11.5 % Eosinophils (%) (Auto) 0.5 % Basophils (%) (Auto) 0.3 % Neutrophils # (Auto) 4.24 K/uL Lymphocytes # (Auto) 1.07 K/uL Monocytes # (Auto) 0.70 K/uL Eosinophils # (Auto) 0.03 K/uL Basophils # (Auto) 0.02 K/uL RDW Standard Deviation 51.6 fL RDW Coefficient of Variation 16.7 % Immature Granulocyte % (Auto) 0.2 % Immature Granulocyte # (Auto) 0.01 K/uL Assessment and Plan Impression Patient is a 89 year old male with complaints of dyspnea and anemia without evidence of GI bleeding. Most recent EGD 07/14 with paul lesions - PPI indefinitely. Daughter (MAXIM) would like to pursue colonoscopy today if able ( patient was unable to complete his prep and has 3 pre-mixed miralax beverages remaining, patient is without IV access, states he does not want a colonoscopy today) Plan Please keep the patient NPO until further assessment by Dr. Khan early this morning. Colonoscopy if patient is agreeable Attg addendum: I interviewed and examined pt, reviewed chart and labs. Pt admit with iron def anemia. He is without overt rectal bleeding, with stable hgb during this admission. His vital signs have been stable. He is awake and alert, and answers questions appropriately. He is mildly pale, but peripheral pulses are normal. Abd is non tender. The most likely causes of his iron deficiency include: Paul's erosions, decreased intake + decreased iron absorption, small bowel AVM's. I cannot exclude an occult GI tract cancer. 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 I discussed natural history of iron deficiency and yield of colonoscopy. Pt's hgb has been stable, and he is without overt GI bleeding; also, because he is refusing IV replacement and colonoscopy, it is likely he would require restraints to allow for procedure has been done. Due to this, I have recommended that cscopy should be deferred. I discussed my concerns with pt's daughter; she is agreeable with this plan. It is ok to resume aspirin. Due to hiatal hernia, and concern for Paul's erosions, pt should be discharged on once daily PPI. Pt should be discharged on iron and folic acid. Please ensure that pt has monthly Hgb checks to look for recurrent anemia as an outpt. Will sign off. Please
[2016-08-01] MEDS ORDERED: PROPOFOL IV EMULSION 10 MG/ML 20 ML VIAL IV ONE (10:01)
[2016-08-01] MEDS ORDERED: LIDOCAINE HCL 2% 2 ML VIAL (20MG/ML) ONE (10:01)
[2016-08-01] MEDS ORDERED: PANT40TA PO (13:52)
[2016-08-01] MEDS ORDERED: CHOL20007 PO ×2 (13:52→14:01)
[2016-08-01] MEDS ORDERED: FLV1 PO (13:52)
[2016-08-01] MEDS ORDERED: ZLF50 PO (13:52)
[2016-08-01] MEDS ORDERED: FERR1TAB13 PO (13:52)
--- NOTE | 2016-08-01 13:58 | Discharge Instructions ---
Discharge Instructions Admission Reason for Admission: Symptomatic Anemia Discharge Discharge Diagnosis / Problem: symptomatic anemia Discharge Goals Goal(s): Decrease discomfort, Improve function Activity Recommendations Activity Level: Up Ad Traci, Assistance Required Therapies: Physical Therapy, Occupational Therapy . Additional Information Patient informed of condition: Yes (dementia) Advance Directives: Yes DNR: No Level of Care: Skilled Communicable Disease: No Prognosis: Stable Muñoz Catheter: No Instructions / Follow-Up Instructions / Follow-Up FOLLOWUP WITH FAMILY DOCTOR IN ONE WEEK. LAB: CBC IN ONE WEEK AND THEN EVERY MONTH FOR ANEMIA CHECK UP. FOLLOW RESULTS WITH FAMILY DOCTOR. LAB: VITAMIN D LEVELS IN 2-3 MONTHS AND FOLLOW RESULTS WITH FAMILY DOCTOR. TO TAKE VITAMIN D 2000 UNITS PO TWICE DAILY FOR 3 MONTHS THEN ONCE DAILY. PROTONIX 40MG DAILY FOLIC ACID 1MG PO DAILY CAN RESUME ASPIRIN RESUME IRON SUPPLEMENTS INCREASED SERTRALINE TO 25MG PO DAILY Current Hospital Diet Patient's current hospital diet: AHA Diet (Heart Healthy) Discharge Diet Recommended Diet: AHA Diet (Heart Healthy) Pending Studies Studies pending at discharge: no Physician Orders On Transfer Special Precautions: FALL AND ASPIRATION PRECAUTIONS Vital Signs: EVERY 8HRS Medical Emergencies . Who to Call and When: Medical Emergencies: If at any time you feel your situation is an emergency, please call 911 immediately. . Non-Emergent Contact Non-Emergency issues call your: Primary Care Provider . . "Provider Documentation" section prepared by Ramón Romero. Core Measure Problem Core Measures: None
[2016-08-01 14:11] VITALS: BP 133/77; PULSE 68; TEMP 36.7; O2SAT 96
--- NOTE | 2016-08-01 19:30 | Progress Note ---
Internal Med Progress Note Date of Service: Aug 01, 2016. Provider Documentation: SUBJECTIVE: ambulating in room ok denies chest pain or sob afebrile hemodynamics stable no plan for colonoscopy and daughter agreeable and requesting to transfer him to his shelter today OBJECTIVE: Vital Signs-as noted below Exam: General-alert and awake ENT-normal hearing Neck-no neck masses Lungs-cta b/l no wheezing or crackles Heart-s1 and s2 heard regular rate and rhythm, no murmurs Abdomen-soft bowel sounds present non tender no distension Extremities-no edema no erythema Neuro-alert and awake moves extremities Lab data as noted below. ASSESSMENT & PLAN: 89 yoM with h/o symptomatic anemia s/p 2 Units blood in early June, returned under court order by daughter/now guardian, to complete the workup including colonoscopy. 1. Anemia-H/H again improved. No bleeding since admission. Patient refusing colonoscopy hb improved to 9.7 today no active bleeding GI discussed in length with family and family agreeable not todo colonoscopy at this time. plan to discharge on iron pill, folic acid, ppi daily can resume aspirin and monthly labs to check for anemia. 2. h/o CAD-in setting of decreased exercise tolerance-TTE was limited 2/2 patient noncompliance with the study, however, there were no gross abnormalities with normal LV function and an EF 55-60%. h/o PCI placement, continue home emds. 3. Vitamin D deficiency-started replacement, may help with memory and fatigue. discharged on vitamin suppments. Needs repeat labs i 2-3 months and followup with pcp. 4. Dementia with agitation seen by psychiatry. increased Zoloft dose. discharged to snf. discharged to snf Vital Signs: Date Time Temp Pulse Resp B/P Pulse Ox O2 Delivery O2 Flow Rate FiO2 08/01/16 14:11 36.7 68 20 96 Room Air 08/01/16 08:17 Room Air 08/01/16 07:25 36.7 68 20 133/77 96 Room Air 07/31/16 23:03 36.7 74 17 126/75 97 Room Air Lab Results: Results Past 24 Hours Test 08/01/16 08:23 Range/Units White Blood Count 6.07 4.8-10.8 K/uL Red Blood Count 3.61 4.7-6.1 M/uL Hemoglobin 9.7 14.0-18.0 g/dL Hematocrit 31.0 42-52 % Mean Corpuscular Volume 85.9 80-100 fL Mean Corpuscular Hemoglobin 26.9 25-34 pg Mean Corpuscular Hemoglobin Concent 31.3 32-36 g/dl Platelet Count 233 130-400 K/uL Mean Platelet Volume 9.5 7.4-10.4 fL Neutrophils (%) (Auto) 69.9 % Lymphocytes (%) (Auto) 17.6 % Monocytes (%) (Auto) 11.5 % Eosinophils (%) (Auto) 0.5 % Basophils (%) (Auto) 0.3 % Neutrophils # (Auto) 4.24 1.4-6.5 K/uL Lymphocytes # (Auto) 1.07 1.2-3.4 K/uL Monocytes # (Auto) 0.70 0.11-0.59 K/uL Eosinophils # (Auto) 0.03 0-0.5 K/uL Basophils # (Auto) 0.02 0-0.2 K/uL RDW Standard Deviation 51.6 36.4-46.3 fL RDW Coefficient of Variation 16.7 11.5-14.5 % Immature Granulocyte % (Auto) 0.2 % Immature Granulocyte # (Auto) 0.01 0.00-0.02 K/uL
--- NOTE | 2016-08-04 20:24 | Discharge Summary ---
Discharge Summary Admission Date: Jul 28, 2016 at 19:32 Discharge Date: Aug 01, 2016 Discharge Disposition: half-way facility Principal Diagnosis: ANEMIA Secondary Diagnoses/Problems: dementia, CAD sp CABG/stenting, hypertension, hyperlipidemia, anxiety as per records, chronic anemia Consultations: GI/Psych Medication Reconciliation New Medications: Cholecalciferol (Vitamin D3) 2,000 Unit Tab 1 TAB PO UD for 30 Days, TAB 5 Refills VITAMIN D 2000 UNITS PO TWICE DAILY FOR 3 MONTHS THEN VITAMIN D 2000 UNITS PO DAILY. Folic Acid (Folic Acid) 1 Mg Tab 1 MG PO DAILY, #30 3 Refills Pantoprazole (Protonix) 40 Mg Tab 40 MG PO DAILY, #30 TAB 3 Refills Sertraline HCl (Sertraline HCl) 50 Mg Tab 25 MG PO HS, #30 TAB 2 Refills Continued Medications: Ascorbic Acid (Vitamin C) 500 Mg Cap 500 MG PO BID Aspirin (Aspirin Chewable) 81 Mg Chew 81 MG PO DAILY Ferrous Sulfate (Kp Ferrous Sulfate) 325 Mg Tab 1 TAB PO BID for 30 Days, #60 TAB 3 Refills (This prescription has been renewed) Tramadol (Ultram) 50 Mg Tab 50 MG PO Q8H PRN for Pain, TAB Discontinued Medications: Pantoprazole (Protonix) 20 Mg Tab 20 MG PO DAILY, #30 TAB Sertraline (Zoloft) 25 Mg Tab 12.5 MG PO HS for 30 Days, TAB Admission Information HPI (per Admitting provider): Medical history is significant for dementia, CAD sp CABG/stenting, hypertension , hyperlipidemia, anxiety as per records, chronic anemia (baseline hemoglobin of 9-10). Recent confinement about 3 weeks ago for symptomatic anemia. Hg 10. EGD showed Paul erosions. Colonoscopy was not done secondary to miscommunication. As per GI note, colonoscopy when patient is agreeable. Patient and daughter opted to go home. Patient started on Prilosec as outpatient. ASA decreased in dose. Last week, patient's daughter from [place] visited the patient. He looked ashen as per daughter. He looked short of breath on exertion. She requested for a blood work to be drawn.. Outpx hemoglobin was noted to be 8.1. PCP recommended ER eval, patient refused. Patient's daughter had to get a court order to bring the patient to the hospital. At the Emergency Room, the patient agitated and combative. Given Ativan. PX denies chest pain, shortness of breath, abdominal pain, black or bloody stools. He does not know why he is in the hospital Physical Exam (per Admitting): VITAL SIGNS: Blood pressure was noted to be 123/72, pulse rate 80, RR 20, temperature 36.8 and sats 90 on room air. GENERAL: Noted to be demented, obese, in no respiratory distress. SKIN: pallor. HEENT: Pale palpebral conjunctivae. Dry mucosa. NECK: Short neck. LUNGS: Decreased breath sounds. HEART: Regular rate and rhythm. ABDOMEN: Some distention, nontender. EXTREMITIES: Minimal LE edema, no tenderness. NEUROLOGIC: Demented. Hospital Course 89 yoM with h/o symptomatic anemia s/p 2 Units blood in early June, returned under court order by daughter/now guardian, to complete the workup including colonoscopy. 1. Anemia-H/H again improved. No bleeding since admission. Patient refusing colonoscopy hb improved to 9.7 today no active bleeding GI discussed in length with family and family agreeable not to do colonoscopy at this time. plan to discharge on iron pill, folic acid, ppi daily can resume aspirin and monthly labs to check for anemia. 2. h/o CAD-in setting of decreased exercise tolerance-TTE was limited 2/2 patient noncompliance with the study, however, there were no gross abnormalities with normal LV function and an EF 55-60%. h/o PCI placement, continue home emds. 3. Vitamin D deficiency-started replacement, may help with memory and fatigue. discharged on vitamin suppments. Needs repeat labs i 2-3 months and followup with pcp. 4. Dementia with agitation seen by psychiatry. increased Zoloft dose. discharged to snf. discharged to snf Total time spent on discharge = 35MINUTES This includes examination of the patient, discharge planning, medication reconciliation, and communication with other providers. Discharge Instructions Discharge Instructions Admission Reason for Admission: Symptomatic Anemia Discharge Discharge Diagnosis / Problem: symptomatic anemia Discharge Goals Goal(s): Decrease discomfort, Improve function Activity Recommendations Activity Level: Up Ad Traci, Assistance Required Therapies: Physical Therapy, Occupational Therapy . Additional Information Patient informed of condition: Yes (dementia) Advance Directives: Yes DNR: No Level of Care: Skilled Communicable Disease: No Prognosis: Stable Muñoz Catheter: No Instructions / Follow-Up Instructions / Follow-Up FOLLOWUP WITH FAMILY DOCTOR IN ONE WEEK. LAB: CBC IN ONE WEEK AND THEN EVERY MONTH FOR ANEMIA CHECK UP. FOLLOW RESULTS WITH FAMILY DOCTOR. LAB: VITAMIN D LEVELS IN 2-3 MONTHS AND FOLLOW RESULTS WITH FAMILY DOCTOR. TO TAKE VITAMIN D 2000 UNITS PO TWICE DAILY FOR 3 MONTHS THEN ONCE DAILY. PROTONIX 40MG DAILY FOLIC ACID 1MG PO DAILY CAN RESUME ASPIRIN RESUME IRON SUPPLEMENTS INCREASED SERTRALINE TO 25MG PO DAILY Current Hospital Diet Patient's current hospital diet: AHA Diet (Heart Healthy) Discharge Diet Recommended Diet: AHA Diet (Heart Healthy) Pending Studies Studies pending at discharge: no Physician Orders On Transfer Special Precautions: FALL AND ASPIRATION PRECAUTIONS Vital Signs: EVERY 8HRS Medical Emergencies . Who to Call and When: Medical Emergencies: If at any time you feel your situation is an emergency, please call 911 immediately. . Non-Emergent Contact Non-Emergency issues call your: Primary Care Provider . . "Provider Documentation" section prepared by Ramón Romero. Core Measure Problem Core Measures: None
== END 2016-08-01 15:56 | disposition home or self-care (01) | DRG 378 ==
LOC: ENRESERVTM → ENRESERVDT → EDBD 15:54 → C.EDC 15:56 → C.MS2W 19:32
PROVIDERS: ADMIT Hospitalist; ATTEND Internal Medicine
DX: K25.4 Chronic or unspecified gastric ulcer with hemorrhage (principal); F02.81 Dementia in other diseases classified elsewhere, unspecified severity, with behavioral disturbance; D50.0 Iron deficiency anemia secondary to blood loss (chronic); G30.9 Alzheimer's disease, unspecified; I12.9 Hypertensive chronic kidney disease with stage 1 through stage 4 chronic kidney disease, or unspecified chronic kidney disease; N18.3 Chronic kidney disease, stage 3 (moderate); E55.9 Vitamin D deficiency, unspecified; E78.5 Hyperlipidemia, unspecified; I25.10 Atherosclerotic heart disease of native coronary artery without angina pectoris; F41.9 Anxiety disorder, unspecified; Z53.29 Procedure and treatment not carried out because of patient's decision for other reasons; Z95.1 Presence of aortocoronary bypass graft; Z79.82 Long term (current) use of aspirin; Z79.891 Long term (current) use of opiate analgesic; Z79.899 Other long term (current) drug therapy